=== PATIENT | female | born 1980 | race Caucasian/White ===

== ENCOUNTER → 2016-05-09 | Outpatient (CLI) | payer OTHER | LOC: RAD 09:43 | PROVIDERS: ATTEND Family Medicine | DX: M25.561 Pain in right knee (principal) ==

== ENCOUNTER → 2016-05-18 | Outpatient (CLI) | payer OTHER | LOC: RAD 07:14 | PROVIDERS: ATTEND Family Medicine | DX: M25.561 Pain in right knee (principal) ==

== ENCOUNTER → 2016-08-29 | Outpatient (CLI) | payer OTHER ==
[2016-08-29 09:15] LABS: HEMATOCRIT 37.4 % (36.0-47.0); HEMOGLOBIN 12.7 g/dL (12.0-15.5); HGB HCT DIFFERENCE 0.7; MEAN CORPUSCULAR HEMOGLOBIN 29.5 pg (27.0-33.4); MEAN CORPUSCULAR VOLUME 87 fl (80-97); RED BLOOD COUNT 4.32 10^6/uL (3.72-5.28); RED CELL DISTRIBUTION WIDTH 12.8 % (11.5-14.0); WHITE BLOOD COUNT 5.3 10^3/uL (4.0-10.5)
[2016-08-29 09:39] LABS: ALANINE AMINOTRANSFERASE 58 U/L (9-52); ALBUMIN 3.8 g/dL (3.5-5.0); ALKALINE PHOSPHATASE 82 U/L (38-126); ANION GAP 11 (5-19); ASPARTATE AMINO TRANSFERASE 36 U/L (14-36); BILIRUBIN,DIRECT 0.2 mg/dL (0.0-0.4); BILIRUBIN,TOTAL 1.5 mg/dL (0.2-1.3); BLOOD UREA NITROGEN 17 mg/dL (7-20); CALCIUM 9.2 mg/dL (8.4-10.2); CARBON DIOXIDE 25 mmol/L (22-30); CHLORIDE 106 mmol/L (98-107); CHOLESTEROL 180.47 mg/dL (0-200); CREATININE RESULT 0.91 mg/dL (0.52-1.25); Direct HDL 60 mg/dL (>40); GLUCOSE 91 mg/dL (75-110); POTASSIUM 4.9 mmol/L (3.6-5.0); SODIUM 141.7 mmol/L (137-145); TOTAL PROTEIN 6.7 g/dL (6.3-8.2); TRIGLYCERIDES 174 mg/dL (<150)
[2016-08-29 09:50] LABS: DIRECT LDL 69 mg/dL (<100)
[2016-08-29 09:56] LABS: VLDL CHOLESTEROL 34.8 mg/dL (10-31)
== END ==
LOC: OD 08:08
PROVIDERS: ATTEND Internal Medicine Cardiovascular Disease
DX: R00.2 Palpitations (principal); R07.9 Chest pain, unspecified
CPT/HCPCS: 36415; 80048; 80061; 80076; 83036; 84443; 85027

== ENCOUNTER → 2018-02-07 | Outpatient (CLI) | payer OTHER ==
[2018-02-07 17:21] LABS: A TYPE INFLUENZA AG NEGATIVE (NEGATIVE); B INFLUENZA AG NEGATIVE (NEGATIVE)
== END ==
LOC: OD 15:13
PROVIDERS: ATTEND Nurse Practitioner Family
DX: R68.89 Other general symptoms and signs (principal)
CPT/HCPCS: 87804

== ENCOUNTER → 2018-03-14 | Outpatient (CLI) | payer OTHER ==
--- NOTE | 2018-03-14 17:04 | RADIOLOGY REPORT (SQ) ---
EXAM DESCRIPTION: FOOT RIGHT COMPLETE COMPLETED DATE/TIME: 03/14/2018 4:56 pm REASON FOR STUDY: PAIN IN RIGHT FOOT M79.671 PAIN IN RIGHT FOOT COMPARISON: None. NUMBER OF VIEWS: Three views. TECHNIQUE: AP, lateral and oblique without weight bearing radiographic images acquired of the right foot. LIMITATIONS: None. FINDINGS: MINERALIZATION: Normal. BONES: No acute fracture or dislocation. No worrisome bone lesions. No significant osteophytes. JOINTS: No erosions. No aditya-articular osteopenia. No chondrocalcinosis. SOFT TISSUES: No swelling. No calcifications. OTHER: No other significant finding. IMPRESSION: NEGATIVE STUDY OF THE RIGHT FOOT. NO EXPLANATION FOR PAIN. TECHNICAL DOCUMENTATION: JOB ID: [id number] [email or web address]- All Rights Reserved Reading location - IP/workstation name: [email or web address]
== END ==
LOC: OD 16:24
PROVIDERS: ATTEND Family Medicine
DX: M79.671 Pain in right foot (principal)